=== PATIENT | female | born 1960 | race Two or more races ===

== ENCOUNTER 2018-01-01 16:52 | Emergency (ER) | payer OTHER ==
[~2018-01-01 16:52] MED LIST: AZIT-1 PO; AZIT-17 PO; CALC-635 PO; CALC500T76 PO; CALC600T63 PO; CHOL100058 PO; CHOL200038 PO; DILT180C73 PO; DOXY-179 PO; FISH OIL1 CAP PO; FLUT16SP19 NS; GUAI-561 PO; HYDR-385 PO; IBU200 PO; IBUP-1687 PO; LEVO750T44 PO; LEVO75TA73 PO; LOR10 PO; MULT-1335 PO; RANI-366 PO; SPIR25TA78 PO; SPIR25TA80 PO; SPIR50TA30 PO; TUM500 PO; VITA-175 PO; ZOST19404 SQ
[2018-01-01 16:55] VITALS: BP 121/101
--- NOTE | 2018-01-01 17:07 | ER Report ---
History and Physical Time Seen By MD: 17:07 Hx. of Stated Complaint: ear pain for two weeks. takin ceftin 500mg. not helping HPI/ROS CHIEF COMPLAINT: Ear pressure, head pressure HISTORY OF PRESENT ILLNESS: 57-year-old female patient presents to the emergency room with complaint of ear pressure and head pressure. Patient states that she has had this for the past 2 weeks. She is seeing Dr. Chatterjee done in [place] for this. He did start her on antibiotics, Ceftin, and she states she's had no improvement. Patient states that she did have a CAT scan done yesterday but has not heard the results. She denies any fevers, chills, nausea, vomiting or diarrhea. Patient states the pain is just become unbearable and she wanted to be evaluated for this. Patient states she's been taking her antibiotics as directed. REVIEW OF SYSTEMS: Respiratory: No cough, no dyspnea. Cardiovascular: No chest pain, no palpitations. Gastrointestinal: No vomiting, no abdominal pain. Musculoskeletal: No back pain. Allergies: Coded Allergies: Penicillins (Verified Allergy, Severe, HIVES, ITCHING, SWELLING OF THROAT, 01/01/18) clonidine (Unverified Allergy, Unknown, sedation, 01/01/18) doxycycline (Unverified Adverse Reaction, Unknown, nausea and vomiting, 01/01/18) Home Meds Active Scripts Hydrocodone Bit/Acetaminophen (HYDROCODON-ACETAMINOPHEN 5-325) 1 Each Tablet, 1 EACH PO Q4-6H PRN for PAIN, #12 TAB Prov:KONG LECHUGA [facility] 01/01/18 Prednisone (PREDNISONE) 20 Mg Tablet, 40 MG PO DAILY, #10 TAB Prov:KONG LECHUGA [facility] 01/01/18 Levofloxacin 500 Mg Tab (LEVAQUIN 500 MG TAB) 500 Mg Tablet, 500 MG PO DAILY, #10 TAB Prov:KONG LECHUGA [facility] 01/01/18 Fluticasone Prop 50 Mcg Ns (FLONASE 50 MCG NS) 16 Gm [place].susp, 2 SPRAYS NS QDAY, #1 BOT 3 Refills Prov:BROOKE ROWLAND MD 03/05/17 Spironolactone (SPIRONOLACTONE) 25 Mg Tablet, 1 TAB PO QAM, #90 TAB 3 Refills Prov:BROOKE ROWLAND MD 03/05/17 Levothyroxine Sodium (LEVOTHYROXINE SODIUM) 75 Mcg Tablet, 1 TAB PO QDAY, #90 TAB 3 Refills Prov:BROOKE ROWLAND MD 03/05/17 Reported Medications Cholecalciferol (Vitamin D3) (VITAMIN D3) 2,000 Unit Tablet, 1 CAP PO DAILY 03/03/14 Calcium Carbonate/Vitamin D3 (CALCIUM 600 + VIT D3 TABLET) 1 Each Tablet, 1 TAB PO DAILY 03/03/14 Vitamin B Complex (B COMPLEX) 1 Each Tablet, 1 TAB PO DAILY 03/03/14 Past Medical/Surgical History Patient has a past medical history of migraines, hypertension, reflux, back pain, hypothyroidism. Patient has a surgical history of tubal ligation left ovary removed, hysterectomy, D&C. Patient has a family medical history of cancer, CAD, stroke. Reviewed Nurses Notes: Yes Smoking Status: Never Smoker Exposure to Second Hand Smoke?: No Constitutional Vital Sign - Last 24 Hours 01/01/18 16:55 Temp 97.6 Pulse 81 Resp 16 B/P (MAP) 121/101 Pulse Ox 95 O2 Delivery Room Air Physical Exam General appearance: Alert no distress. Respiratory: Chest is non tender, lungs are clear to auscultation. Cardiac: Regular rate and rhythm. ENT: Tympanic membranes are pearly-potter, auditory canals are patent, mixed mucous membranes are moist. Right tympanic membrane does seem to be bulging. DIFFERENTIAL DIAGNOSIS: After history and physical exam differential diagnosis was considered for sinusitis, otitis media, eustachian tube dysfunction Medical Decision Making ED Course/Re-evaluation ED Course Patient was admitted in exam room, history and physical were obtained. Differential diagnoses were considered. On examination lungs are clear, heart is regular, abdomen, patient is in obvious discomfort, tympanic membranes are pearly-potter on the right tympanic membrane is bulging. Patient stated that she had a CT scan of the sinuses done just the day before. As a result of that I did not want to repeat her CT scan here. I did call down to the imaging center in [place]. They did request that I send a release of information to them. That was done and they did fax me the results of her CT scan. CT scan did show significant inflammation in the sinuses, with the right maxillary sinus being almost completely opacified. There is also some narrowing of the right frontal sinus. I discussed the findings with the patient and her . Discussed with patient and her that I think we need to change antibiotics believe that she has had a medication failure. We will go ahead and put her on Levaquin 500 milligrams Will do that daily for the next 10 days. We'll also put her on prednisone 40 mg a day for the next 5 days. Because she is so uncomfortable we w ill go ahead and do a limited supply of pain medication for the next 2 days. She is to follow-up with Dr. Thompson, urinalysis and throat doctor. She is to call and make an appointment tomorrow. Patient and her verbalized understanding and agreement with plan. Decision to Disposition Date: Jan 01, 2018 Decision to Disposition Time: 18:16 Depart Departure Latest Vital Signs Vital Signs Date Time Temp Pulse Resp B/P (MAP) Pulse Ox O2 Delivery O2 Flow Rate FiO2 01/01/18 16:55 97.6 81 16 121/101 95 Room Air Impression: Primary Impression: Acute maxillary sinusitis Condition: Improved Disposition: HOME OR SELF-CARE Referrals: JIE THOMPSON JR, MD New Scripts Hydrocodone Bit/Acetaminophen (HYDROCODON-ACETAMINOPHEN 5-325) 1 Each Tablet 1 EACH PO Q4-6H PRN for PAIN, #12 TAB Prov: KONG LECHUGA 01/01/18 Prednisone (PREDNISONE) 20 Mg Tablet 40 MG PO DAILY, #10 TAB Prov: KONG LECHUGA 01/01/18 Levofloxacin 500 Mg Tab (LEVAQUIN 500 MG TAB) 500 Mg Tablet 500 MG PO DAILY, #10 TAB Prov: KONG LECHUGAP 01/01/18 Patient Instructions: Sinusitis (ED) Additional Instructions: Increase fluid intake. Get plenty of rest. Limit activity by pain. Stop taking your Cefuroxime, and start taking your Levaquin tonight. Return to the ER if condition worsens. You should see some improvement in the next 2-4 days. Follow up with ENT, call tomorrow to make an appointment. Problem Qualifiers Primary Impression: Acute maxillary sinusitis Recurrence: recurrent Qualified Codes: J01.01 - Acute recurrent maxillary sinusitis KONG LECHUGA [facility] Jan 01, 2018 17:07
[2018-01-01] MEDS ORDERED: LEVO-85 PO (18:11)
[2018-01-01] MEDS ORDERED: PRED20TA6 PO (18:11)
[2018-01-01] MEDS ORDERED: HYDR-385 PO (18:11)
== END 2018-01-01 18:23 | disposition home or self-care (01) ==
LOC: ER 17:02
DX: J01.01 Acute recurrent maxillary sinusitis (principal)
CPT/HCPCS: 99282

== ENCOUNTER → 2018-08-25 | Outpatient (CLI) | payer OTHER ==
[~2018-08-25] MED LIST changes: +FLU60VIA41 IM; +LEVO-85 PO; +PRED20TA6 PO
[2018-08-25 11:42] LABS: PLATELET COUNT, AUTOMATED 347 K/uL (150-450)
== END ==
LOC: LAB 11:07
PROVIDERS: ATTEND Emergency Medicine
DX: E03.9 Hypothyroidism, unspecified (principal); E78.00 Pure hypercholesterolemia, unspecified; G60.9 Hereditary and idiopathic neuropathy, unspecified; I10 Essential (primary) hypertension
CPT/HCPCS: 36415; 82040; 82247; 82310; 82374; 82435; 82465; 82565; 82947; 83036; 83718; 84075; 84132; 84155; 84295; 84443; 84450; 84460; 84478; 84520; 85025